=== PATIENT | female | born 1990 | race Two or more races ===

== ENCOUNTER 2025-03-20 11:45 | Inpatient (IN) | payer OTHER ==
[~2025-03-20] VITALS: Ht 157.5 cm; Wt 56.7 kg
[2025-03-20 13:31] VITALS: BP 115/78
[2025-03-27] MEDS ORDERED: POVIDONE-IODINE 118 ML BOTT TOP ONE (10:15)
[2025-03-27] MEDS ORDERED: CEFAZOLIN SODIUM 1,000 MG VIAL IV SCH ×3 (10:15→17:00)
[2025-03-27] MEDS ORDERED: PANTOPRAZOLE SODIUM 40 MG/VIAL VIAL IV SCH (10:15)
[2025-03-27] MEDS ORDERED: SUGAMMADEX SODIUM 200 MG/2 ML VIAL IV ONE (11:30)
[2025-03-27] MEDS ORDERED: RINGERS SOLUTION,LACTATED 1,000 ML IV SCH (13:30)
[2025-03-27 16:23] VITALS: BP 126/76
[2025-03-27] MEDS ORDERED: MORPHINE SULFATE 4 MG/ML VIAL IV SCH (17:00)
[2025-03-27 20:00] VITALS: BP 117/71
[2025-03-27] MEDS ORDERED: ONDANSETRON HCL 2 MG/ML VIAL IV SCH (21:00)
[2025-03-28] VITALS: BP 112/66
[2025-03-28 08:00] VITALS: BP 130/80
[2025-03-28] MEDS ORDERED: KETOROLAC TROMETHAMINE 10 MG TABLET PO SCH (08:00)
[2025-03-28 16:22] VITALS: BP 103/69
[2025-03-28 16:23] VITALS: BP 103/69
[2025-03-28 20:00] VITALS: BP 109/72
[2025-03-29] VITALS: BP 104/69
[2025-03-29 08:42] VITALS: BP 100/68
== END 2025-03-29 11:34 | disposition home or self-care (01) | DRG 743 ==
LOC: O/R 03-27 06:00 → SURG 03-27 07:00 → OB/GYN 03-27 13:44
PROVIDERS: ADMIT Obstetrics & Gynecology; ATTEND Obstetrics & Gynecology
PROC: 0UT70ZZ Resection of Bilateral Fallopian Tubes, Open Approach (ICD-10-PCS; 2025-03-27)
PROC: 0UT90ZZ Resection of Uterus, Open Approach (ICD-10-PCS; principal; 2025-03-27 07:00)
DX: D25.2 Subserosal leiomyoma of uterus (principal); N80.03 Adenomyosis of the uterus